=== PATIENT | male | born 1980 | race Caucasian/White ===

== ENCOUNTER 2017-04-20 07:44 | Emergency (ER) | payer OTHER ==
[2017-04-20 08:23] LABS: ALBUMIN 4.6 g/dL (3.5-5.0); BILIRUBIN - TOTAL 0.4 mg/dL (0.1-1.0); CREATININE 1.1 mg/dL (0.7-1.2); GLOBULIN (CALCULATION) 2.7 g/dL (2.2-4.2); POTASSIUM 3.6 mmol/L (3.5-5.1); TOTAL PROTEIN 7.3 g/dL (6.4-8.3)
[2017-04-20 08:31] LABS: BASOPHIL 0.4 % (0-2); HCT 44.8 % (42.0-52.0); HGB 15.3 g/dl (13.2-18.0); LYMPHOCYTE 46.7 % (15-48); MCHC 34.2 g/dL (32.0-36.0); MCV 90.9 fL (78.0-100.0); MONOCYTE 9.4 % (0-12); MPV 10.4 fL (6.0-9.5); NEUTROPHIL 41.5 % (41-80); PLT 257 K/uL (150-400); RBC 4.93 M/uL (4.70-6.00); RDW 12.5 % (11.5-14.0); WBC 6.9 K/uL (4.0-10.5)
[2017-04-20 09:30] LABS: BILIRUBIN NEGATIVE (NEGATIVE); BLOOD TRACE-INTACT Ery/uL (NEGATIVE); CLARITY CLEAR (CLEAR); COLOR YELLOW (YELLOW); GLUCOSE (U) NORMAL (NORMAL); KETONE (U) NEGATIVE (NEGATIVE); LEUKOCYTES NEGATIVE Leu/uL (NEGATIVE); NITRITE NEGATIVE (NEGATIVE); PROTEIN NEGATIVE (NEGATIVE); SPECIFIC GRAVITY 1.015 (1.001-1.030); UROBILINOGEN 0.2 mg/dL (0.2-1.0); pH 7.5 (5.0-9.0)
[2017-04-20 09:34] LABS: SQUAMOUS EPITHELIAL CELLS RARE; URINARY WBC RARE
[2017-04-20 09:35] LABS: AMORPHOUS URATES CRYSTALS TRACE
== END 2017-04-20 12:07 | disposition home or self-care (01) ==
LOC: FER 07:44
PROVIDERS: Internal Medicine
DX: N20.0 Calculus of kidney (principal); F90.9 Attention-deficit hyperactivity disorder, unspecified type; Z79.899 Other long term (current) drug therapy
CPT/HCPCS: 36415; 80053; 81001; 82360; 85025; J1885